=== PATIENT | male | born 1930 | race Caucasian/White ===

== ENCOUNTER 2016-05-29 14:38 | Inpatient (IN) ==
[2016-05-29] MEDS ORDERED: 0.9 % Sodium Chloride 1,000 ML IVC ONE (15:35)
--- NOTE | 2016-05-29 15:42 | Emergency Department Note ---
START Narrative - START START: I examined this patient and my medical decision-making was reviewed with the NURSE SCHOOL/PA/Advanced Practice Nurse/Resident Physician. I agree with the documented findings, disposition and treatment plan as described except to the extent set forth below. ED attending note: Patient seen with emergency medicine resident Dr. Argueta. Please see a copy of his note for details of the H&P, evaluation, management and disposition of this patient. We independently had [id number] contact with the patient Briefly: A 86-year-old male history of cancer under the care of oncology at the [facility] presents with generalized weakness for the past several days. No new shortness of breath fever or cough. Patient did ED workup and most likely transferred to the [facility]. Disposition pending. Patient stable.
[2016-05-29] MEDS ORDERED: Ondansetron 4 MG/2 ML VIAL IVP ONE (16:23)
--- NOTE | 2016-05-29 16:56 | Emergency Department Note ---
Disposition Clinical Impression: Weakness generalized, Dehydration, FTT (failure to thrive) in adult Disposition: Admitted As Inpatient Condition: Fair Time of Disposition: 17:37 Weakness HPI - General Chief complaint: ED Weakness Stated complaint: general weakness Source: EMS Limitations: no limitations Nursing Notes Reviewed: Yes Vital Signs Reviewed: Yes - History of Present Illness HPI Narrative: Patient is an 86-year-old male brought to [facility] ED with a chief complaint of generalized weakness, decreased appetite over the last 2 days with concern for dehydration, difficulty with constipation as well as difficulty with urination. Denies any nausea, vomiting, fever or chills. Past medical history significant for myelofibrosis and which she is seen at [facility]. He missed his appointment today where he normally receives blood transfusion and injection Aranest. Patient has also been complaining of recent anal spasms over the last week. Family would like him to get worked up here and then likely transferred to [facility]. Pt Subjective Complaint: generalized weakness/fatigue Onset (ago): week(s) Duration: gradually worsening Pain Severity: moderate Pain Scale: 6 Improves with: none Worsens with: none Associated symptoms: Reports: loss of appetite. Denies: chest pain, confusion, fever/chills - Related Data Home Medications Medication Instructions Recorded Confirmed Lidocaine [Lidocaine] 1 each TD DAILY 05/29/16 05/29/16 Meclizine [Antivert] 12.5 mg PO TID PRN 05/29/16 05/29/16 Tramadol HCl [Tramadol HCl] 50 - 100 mg PO Q4H PRN 05/29/16 05/29/16 Allergies Allergy/AdvReac Type Severity Reaction Status Date / Time shellfish derived AdvReac Hallucinati Verified 05/29/16 14:46 ng All systems ED: reviewed and negative except as stated. Past Medical History - Past Medical History Attestation: Yes The following information was validated with the patient. Source: patient Medical history: Reports: other Psychiatric history: Reports: no psych history - Social History Smoking Status: Unknown if ever smoked Smokeless Tobacco Status: No Alcohol use: Reports: none Drug use: Reports: none Physical Exam - General Limitations: no limitations General appearance: alert, in no apparent distress, cachectic - Head Head exam: atraumatic, normocephalic, normal inspection - Eye Eye exam: Present: normal appearance, PERRL, EOMI - ENT ENT exam: normal exam, normal oropharynx, mucous membranes moist - Neck Neck exam: Present: normal inspection, full ROM, trachea midline - Chest Chest inspection: Present: normal inspection, symmetric chest wall rise - Respiratory Respiratory exam: Present: normal lung sounds bilaterally - Cardiovascular Cardiovascular exam: Present: regular rate, normal rhythm, normal heart sounds - Abdominal Exam Abdominal exam: Present: soft, Non-Tender. Absent: tenderness, distention, guarding, rebound, rigidity - Extremities Exam Extremities exam: Present: normal inspection, full ROM. Absent: tenderness, pedal edema - Back Exam Back exam: Present: normal inspection, full ROM. Absent: tenderness - Neurological Exam Neurological exam: Present: alert, oriented X3 - Psychiatric Psychiatric exam: Present: normal affect, normal mood - Skin Skin exam: Present: warm, dry, intact, normal color Course Course Narrative: Patient seen and examined. Generalized weakness, no intake for the last 2 days. Lab work, chest x-ray ordered. - Reevaluation(s) Reevaluation #1: Lab work appears consistent with where he has been chronically. I spoke with his manager mobility Dr. Damon up at [facility] who states she does not feel patient needs transferred at this time. They would not do anything differently for him. She recommends IV fluids for his dehydration and likely transfer of care over to hospice. She states she has been gently suggesting this to the family and they have been open to this transition. He is currently DNR [facility]. I spoke with the family about this plan and they are in agreement. Patient has been admitted to [facility] Time: 17:37 Vital Signs Temperature 97.4 F L 05/29/16 14:41 Pulse Rate 89 05/29/16 14:41 Respiratory Rate 16 05/29/16 14:41 Blood Pressure 179/84 05/29/16 14:41 O2 Sat by Pulse Oximetry 99 05/29/16 14:41 Temperature 97.4 F L 05/29/16 14:41 Pulse Rate 89 05/29/16 17:37 Respiratory Rate 16 05/29/16 17:37 Blood Pressure 148/76 05/29/16 17:37 O2 Sat by Pulse Oximetry 94 L 05/29/16 17:37 Oxygen Delivery Oxygen Delivery Room Air Weakness - Medical Records Medical records reviewed: Yes I reviewed the patient's medical records. - Lab Data Lab results reviewed: Yes I reviewed the patient's lab results. Result diagrams: 05/29/16 17:02 05/29/16 17:02 Lab Results 05/29/16 05/29/16 05/29/16 Range/Units 16:43 17:02 17:02 WBC 15.7 H (4.3-11.1) K/mcL RBC 3.19 L (4.19-5.50) M/mcL Hgb 9.4 L (12.9-16.9) g/dL Hct 27.8 L (37.5-50.1) % MCV 87.1 (83.0-100.0) fL MCH 29.5 (28.0-33.3) pg MCHC 33.8 (31.6-35.5) g/dL RDW 16.0 H (11.5-14.5) % Plt Count 33 L (140-400) K/mcL MPV 9.5 (9.4-12.4) fL Seg Neutrophils % 20.0 % Band Neutrophils % 26.0 H (0-4) % Lymphocytes % 24.0 % Monocytes % 18.0 % Metamyelocytes % 10.0 H (0) % Myelocytes % 2.0 H (0) % Neutrophils # 7.2 (1.6-8.9) K/mcL Lymphocytes # 3.8 (0.6-4.6) K/mcL Monocytes # 2.8 H (0.0-1.3) K/mcL Nucleated RBCs/100 WBC 17.1 H (0) /100 WBC Platelet Estimate Marked Decrease L (Normal) Poikilocytosis 1+ A (Not Present) Anisocytosis 1+ A (Not Present) Microcytosis Present A (Not Present) Sodium 136 (136-145) mEq/L Potassium 5.0 H (3.5-4.5) mEq/L Chloride 104 (98-109) mEq/L Carbon Dioxide 22 (19-29) mEq/L BUN 20 (8-26) mg/dL Creatinine 0.85 (0.72-1.25) mg/dL Est GFR ( Amer) > 60 (> 60) Est GFR (Non-Af Amer) > 60 (> 60) BUN/Creatinine Ratio 24 (6-26) Glucose 140 H (70-99) mg/dL Calculated Osmolality 287 (280-300) Lactic Acid 1.1 (0.5-2.2) mmol/L Calcium 8.7 (8.6-10.8) mg/dL Magnesium 2.2 (1.6-2.6) mg/dL Total Bilirubin 1.6 H (0.2-1.2) mg/dL AST 17 (5-34) Units/L ALT 8 (0-55) Units/L Alkaline Phosphatase 104 (38-126) Units/L Troponin I (0-0.03) ng/mL Serum Total Protein 7.8 (6.0-8.3) g/dL Albumin 3.0 L (3.5-5.0) g/dL Globulin 4.8 H (2.4-3.5) g/dL Albumin/Globulin Ratio 0.6 L (1.1-2.2) 05/29/16 Range/Units 17:48 WBC (4.3-11.1) K/mcL RBC (4.19-5.50) M/mcL Hgb (12.9-16.9) g/dL Hct (37.5-50.1) % MCV (83.0-100.0) fL MCH (28.0-33.3) pg MCHC (31.6-35.5) g/dL RDW (11.5-14.5) % Plt Count (140-400) K/mcL MPV (9.4-12.4) fL Seg Neutrophils % % Band Neutrophils % (0-4) % Lymphocytes % % Monocytes % % Metamyelocytes % (0) % Myelocytes % (0) % Neutrophils # (1.6-8.9) K/mcL Lymphocytes # (0.6-4.6) K/mcL Monocytes # (0.0-1.3) K/mcL Nucleated RBCs/100 WBC (0) /100 WBC Platelet Estimate (Normal) Poikilocytosis (Not Present) Anisocytosis (Not Present) Microcytosis (Not Present) Sodium (136-145) mEq/L Potassium (3.5-4.5) mEq/L Chloride (98-109) mEq/L Carbon Dioxide (19-29) mEq/L BUN (8-26) mg/dL Creatinine (0.72-1.25) mg/dL Est GFR ( Amer) (> 60) Est GFR (Non-Af Amer) (> 60) BUN/Creatinine Ratio (6-26) Glucose (70-99) mg/dL Calculated Osmolality (280-300) Lactic Acid (0.5-2.2) mmol/L Calcium (8.6-10.8) mg/dL Magnesium (1.6-2.6) mg/dL Total Bilirubin (0.2-1.2) mg/dL AST (5-34) Units/L ALT (0-55) Units/L Alkaline Phosphatase (38-126) Units/L Troponin I 0.00 (0-0.03) ng/mL Serum Total Protein (6.0-8.3) g/dL Albumin (3.5-5.0) g/dL Globulin (2.4-3.5) g/dL Albumin/Globulin Ratio (1.1-2.2) - Radiology Data Radiology results reviewed: Yes I reviewed the patient's radiology results. - EKG Data EKG attestation: Yes I reviewed and interpreted this EKG. EKG results narrative: EKG done at 1457 shows normal sinus rhythm with a rate of 87 beats per minute. No acute ST elevation or depression. Normal axis.
[2016-05-29 17:10] LABS: Hematocrit 27.8 % (37.5-50.1); Hemoglobin 9.4 g/dL (12.9-16.9); Mean Corpuscular HGB Conc 33.8 g/dL (31.6-35.5); Mean Corpuscular Hemoglobin 29.5 pg (28.0-33.3); Mean Corpuscular Volume 87.1 fL (83.0-100.0); Mean Platelet Volume 9.5 fL (9.4-12.4); Nucleated Red Blood Cells 17.1 /100 WBC (0); Red Blood Count 3.19 M/mcL (4.19-5.50)
[2016-05-29 17:12] LABS: Platelet Count 33 K/mcL (140-400)
[2016-05-29 17:25] LABS: Alanine Aminotransferase 8 Units/L (0-55); Albumin/Globulin Ratio 0.6 (1.1-2.2); Alkaline Phosphatase 104 Units/L (38-126); Aspartate Amino Transferase 17 Units/L (5-34); BUN/Creatinine Ratio 24 (6-26); Bilirubin,Total 1.6 mg/dL (0.2-1.2); Blood Urea Nitrogen 20 mg/dL (8-26); Calcium 8.7 mg/dL (8.6-10.8); Carbon Dioxide 22 mEq/L (19-29); Chloride 104 mEq/L (98-109); Globulin 4.8 g/dL (2.4-3.5); Glucose 140 mg/dL (70-99); Magnesium 2.2 mg/dL (1.6-2.6); Osmolality,Calculated 287 (280-300); Sodium 136 mEq/L (136-145); Total Protein 7.8 g/dL (6.0-8.3); eGFR For African Americans > 60 (> 60); eGFR For Non-African Americans > 60 (> 60)
[2016-05-29 17:26] LABS: Lymphocytes # 3.8 K/mcL (0.6-4.6); Monocytes # 2.8 K/mcL (0.0-1.3); Neutrophils # 7.2 K/mcL (1.6-8.9)
[2016-05-29 17:27] LABS: Anisocytosis 1+ (Not Present); Microcytosis Present (Not Present); Platelet Estimate Marked Decrease (Normal); Poikilocytosis 1+ (Not Present)
[2016-05-29] MEDS ORDERED: *HR* HYDROcodone/Acet 5/325 mg TABLET PO PRN (21:21)
[2016-05-29] MEDS ORDERED: Naloxone 0.4 MG/ML INJ IVP PRN (21:21)
[2016-05-29] MEDS ORDERED: *HR* Morphine 2 MG/ML SYRINGE IVP PRN (21:21)
[2016-05-29] MEDS ORDERED: 0.9 % Sodium Chloride 1,000 ML IVC SCH (21:30)
--- NOTE | 2016-05-29 21:32 | Internal Med History&Physical ---
<Rufino Alba - Last Filed: 05/30/16 03:45> Date of Encounter: 05/30/16 Time of Encounter: 21:30 Assessment and Plan (1) Weakness generalized Current visit: Yes Status: Chronic Likely multifactorial, but patient has myelofibrosis and undergoing therapy and has poor appetite Will workup for any metabolic derangements and support with fluids at this time He desires hospice and would like comfort care only Consult palliative to assist in transition to hospice Continue with supportive measures with fluids, analgesia, and anti-emetics (2) FTT (failure to thrive) in adult Current visit: Yes Status: Acute Will consult palliative as above for hospice management Once speech therapy performs formal swallow evaluation, consider nutrition consult for management dietary supplements Caregiver states that he has tried Marinol in the past which has helped both his appetite and pain (3) Dehydration Current visit: Yes Status: Acute He clinically appears dehydrated but there has been no damage to his kidneys Will start gentle hydration with 60 ml/hr (4) DVT prophylaxis Current visit: Yes Status: Acute SCDs Internal Medicine - H&P: HPI Chief complaint: weakness Admitted From: Home Plans for Post Hospital Care: Hospice - Home History of present illness: Mr. Garsia is a 86 year old male who presents to the emergency department with 2 day history of weakness and decreased appetite. He has a history of myelofibrosis and sees oncology at the [facility] at [facility]. He had been receiving biweekly Aranest injections and infusions, however he missed today's appointment due to profound weakness. Upon arrival at the ED here at [place], patient's family wanted to transfer him up to the [facility] to receive more care. However the teller at [facility], Dr. Damon, was contacted and stated that transfer was unnecessary as no further care was needed at the [facility] They also spoke to him about transitioning him to hospice in the past, and agreed that now would be an appropriate time. Patient has been having decreased appetite over past several days but denies any nausea, vomiting, diarrhea, constipation, or blood in stool. Past Med Surg Social Fam HX - Past Medical History Medical history: other Psychiatric history: no psych history - Social History Smoking Status: Unknown if ever smoked Smokeless Tobacco Status: No Alcohol use: none Drug use: none - Family History Son Name: Rufino Garsia Age: 60 Family Member Ethnicity: Non- Living Status: Still Living Hx Family Cardiac Disorders: No Hx Family Respiratory Disorders: No Hx Family Cancer: No Hx Family GI Disorders: No Hx Family Genitourinary Disorders: No Hx Family Endocrine Disorder: Yes Hx Family Musculoskeletal Disorders: No Hx Family Neuromuscular Disorders: No Hx Family Neurologic Disorders: No Hx Family HEENT Disorders: No Hx Family Autoimmune Disorders: No Hx Family Reproductive Disorders: No Hx Family Psychosocial Disorders: No Hx Family Medical Disorders: No Internal Medicine - H&P: Meds Lidocaine [Lidocaine] 1 each TD DAILY 05/29/16 [History] Meclizine [Antivert] 12.5 mg PO TID PRN 05/29/16 [History] Tramadol HCl [Tramadol HCl] 50 - 100 mg PO Q4H PRN 05/29/16 [History] Allergies shellfish derived Adverse Reaction (Verified 05/29/16 14:46) Hallucinating All Systems PM: A 10-system review of systems was performed and is negative for pertinent findings except as documented above in the HPI. - Constitutional Constitutional: anorexia, weakness, no chills, no fever(s), no night sweats - EENT Eyes: no change in vision, no discharge, no pain, no photophobia Ears: no ear discharge, no ear pain, no tinnitus Nose, mouth and throat: no dysphagia, no nasal discharge, no neck pain, no sore throat - Cardiovascular Cardiovascular ROS IM: no chest pain, no diaphoresis, no dyspnea, no lightheadedness, no palpitations, no syncope - Respiratory Respiratory: no cough, no dyspnea, no wheezing, no excessive phlegm production - Gastrointestinal Gastrointestinal: no abdominal pain, no diarrhea, no hematemesis, no hematochezia, no melena, no nausea, no vomiting - Musculoskeletal Musculoskeletal ROS IM: no numbness, no tingling - Integumentary Integumentary IM: no rash, no unusual bruising - Neurological Neurological ROS: weakness, no confusion, no convulsions, no focal weakness, no numbness, no tingling, no tremor(s) - Hematologic/Lymphatic Hematologic/Lymphatic: no easy bruising - Constitutional Vitals: Temp Pulse Resp BP Pulse Ox 98.0 F 91 20 164/94 95 05/29/16 19:13 05/29/16 19:13 05/29/16 19:13 05/29/16 19:13 05/29/16 19:13 General appearance: Present: cachectic, cooperative, A&O X 2 (unaware of place) , pleasant, no acute distress, answers questions appropriately - Head Head exam: Present: atraumatic, normocephalic - Eye Eye exam: Present: PERRL, conjuntiva pink, sclera anicteric - Neck Neck exam general surgery: Present: supple, trachea midline. Absent: lymphadenopathy - Respiratory Respiratory exam: Present: CTAB. Absent: accessory muscle use, rales, rhonchi, wheezes - Cardiovascular Cardiovascular exam: Present: RRR, +S1, +S2. Absent: diastolic murmur, gallop, rubs, systolic murmur - GI/Abdominal GI/Abdominal exam: Present: normal bowel sounds, soft, no peritoneal signs. Absent: distended, tenderness - Extremities Exam Extremities exam: Present: warm, radial pulses palpable and symetrical. Absent : calf tenderness, cyanotic, pedal edema, tenderness - Neurological Exam Neurological exam: Present: alert, no focal deficits. Absent: oriented X3, facial droop, speech deficit - Skin Skin exam: Present: dry, intact Internal Med - H&P Results - Labs CBC & Chem 7: 05/29/16 17:02 05/29/16 17:02 <Gallo Hull - Last Filed: 05/30/16 05:45> Date of Encounter: 05/30/16 Internal Medicine - H&P: HPI History of present illness: Mr. Garsia is a 86 year old male All Systems PM: A 10-system review of systems was performed and is negative for pertinent findings except as documented above in the HPI. - Constitutional Vitals: Temp Pulse Resp BP Pulse Ox 97.6 F 71 18 152/65 99 05/30/16 03:52 05/30/16 03:52 05/30/16 03:52 05/30/16 03:52 05/30/16 03:52 Internal Med - H&P Results - Labs CBC & Chem 7: 05/29/16 17:02 05/29/16 17:02 - Attending Attestation I examined this patient and my medical decision-making was reviewed with the Resident Physician, Dr. Alba. I agree with the documented findings, disposition and treatment plan as described except to the extent set forth below. She presented to the hospital for generalized weakness. He is mildly confused. On exam he appears cachectic and in no acute distress heart is regular lungs are clear. Plan is to consult palliative care service and discharge home with hospice.
[2016-05-30] MEDS: Ondansetron 4 MG/2 ML VIAL IVP SCH ×6 (01:48→19:33)
[2016-05-30 06:19] LABS: Basophils # 0.1 K/mcL (0.0-0.2); Hematocrit 26.1 % (37.5-50.1); Hemoglobin 8.3 g/dL (12.9-16.9); Immature Platelets 9.7 % (1.1-6.1); Mean Corpuscular HGB Conc 31.8 g/dL (31.6-35.5); Mean Corpuscular Hemoglobin 28.3 pg (28.0-33.3); Mean Corpuscular Volume 89.1 fL (83.0-100.0); Mean Platelet Volume 11.3 fL (9.4-12.4); Nucleated Red Blood Cells 13.1 /100 WBC (0); Red Blood Count 2.93 M/mcL (4.19-5.50)
[2016-05-30 06:27] LABS: BUN/Creatinine Ratio 19 (6-26); Blood Urea Nitrogen 16 mg/dL (8-26); Calcium 8.5 mg/dL (8.6-10.8); Carbon Dioxide 28 mEq/L (19-29); Chloride 103 mEq/L (98-109); Glucose 101 mg/dL (70-99); Osmolality,Calculated 285 (280-300); Potassium 4.6 mEq/L (3.5-4.5); Sodium 137 mEq/L (136-145); eGFR For African Americans > 60 (> 60); eGFR For Non-African Americans > 60 (> 60)
[2016-05-30 06:34] LABS: Platelet Count 31 K/mcL (140-400)
[2016-05-30 07:03] LABS: Folate 12.9 ng/mL (7.0-31.4)
[2016-05-30 07:35] LABS: Thyroid Stimulating Hormone 3.319 mcIU/mL (0.350-4.840)
[2016-05-30 09:37] LABS: Eosinophils # 0.1 K/mcL (0.0-0.6); Lymphocytes # 3.6 K/mcL (0.6-4.6); Monocytes # 0.4 K/mcL (0.0-1.3); Neutrophils # 5.2 K/mcL (1.6-8.9)
[2016-05-30 09:39] LABS: Anisocytosis 1+ (Not Present); Ovalocytes 1+ (Not Present); Platelet Estimate Marked Decrease (Normal); Polychromasia 1+ (Not Present)
--- NOTE | 2016-05-30 10:02 | Discharge Summary ---
Date of Encounter: 05/30/16 Time of Encounter: 10:00 - Discharge Diagnosis (1) DVT prophylaxis Priority: Primary Status: Acute (2) Dehydration Priority: Secondary Status: Acute (3) FTT (failure to thrive) in adult Priority: Secondary Status: Acute (4) Weakness generalized Priority: Secondary Status: Chronic - Discharge Medications Prescriptions: Dronabinol [Marinol] 5 mg PO BIDLS #60 capsule Ondansetron HCl [Zofran] 4 mg PO Q8H 30 Days Home Medications: Lidocaine 1 each TD DAILY 05/29/16 [History] Meclizine [Antivert] 12.5 mg PO TID PRN 05/29/16 [History] Tramadol HCl 50 - 100 mg PO Q4H PRN 05/29/16 [History] Dronabinol [Marinol] 5 mg PO BIDLS #60 capsule 05/30/16 [Rx] Ondansetron HCl [Zofran] 4 mg PO Q8H 30 Days 05/30/16 [Rx] Allergies/Adverse Reactions: Allergies shellfish derived Adverse Reaction (Verified 05/29/16 14:46) Hallucinating Date of admission: 05/29/16 18:25 Primary care physician: Nilson Mcdonald MD Consults: 05/29/16 21:24 Consult to [employer] [CONS] Routine Reason for SW Consult: transition to hospice Consult to Speech Therapy [CONS] Routine Comment: Evaluate, develop and implement POC Reason for Consult: formal speech evaluation, has difficulty swallowing certain foods Call Completed: No 05/29/16 21:27 Consult to Palliative Care [CONS] Routine Comment: patient and family want hospice Consulting Provider: Pall[facility] [place] Discharging clinician: Barr[place] Villsaenor Anticipated date of discharge: 05/30/16 - Patient Status Condition: Fair - Discharge Instructions Follow Up With: Nilson Mcdonald MD [Primary Care Provider] - Hospital course: Mr. Garsia is a 86 year old male - Time Spent with Patient Total time spent providing and/or coordinating discharge services: Greater than 30 minutes (42 minutes) Specific discharge activities: do not lift more 10 pounds - Constitutional Vitals: Temp Pulse Resp BP Pulse Ox 97.7 F 64 17 116/58 98 05/30/16 06:46 05/30/16 06:46 05/30/16 06:46 05/30/16 06:46 02/17/17 08:40 General appearance: Present: cachectic, cooperative, A&O X 2 (unaware of place) , pleasant, no acute distress, answers questions appropriately
[2016-05-30 10:20] LABS: Bilirubin,Urine Negative (Negative); Blood,Urine Trace-intact (Negative); Clarity,Urine Slightly Cloudy (Clear); Glucose,Urine (UA) Normal (Normal); Ketones,Urine Negative (Negative); Leukocyte Esterase,Urine Negative (Negative); Nitrite,Urine Positive (Negative); Protein,Urine 30 mg/dL (Neg-Trace); Specific Gravity,Urine 1.025 (1.010-1.025); Urobilinogen,Urine Normal (Normal)
[2016-05-30 10:21] LABS: Color,Urine Dark Yellow (Yellow)
[2016-05-30 10:46] LABS: Amorphous Sediment,Urine Few (Few); Bacteria,Urine Many per hpf (None-Few); Hyaline Casts,Urine Few per lpf (None-Few); Mucus,Urine Many (Few)
--- NOTE | 2016-05-30 11:19 | Palliative - Consult Note ---
Date of Encounter: 05/30/16 Time of Encounter: 09:10 - Assessment and Plan (1) Constipation Current Visit: Yes Status: Acute Assessment and plan: Relieved status post disimpaction. The patient states he has been having multiple very small bowel movements each day feels much better after having had a large one in the emergency department. Qualifiers: Constipation type: slow transit constipation Qualified Code(s): K59.01 - Slow transit constipation (2) Goals of care, counseling/discussion Current Visit: Yes Status: Acute Assessment and plan: Patient's CODE STATUS is DNR comfort care. Per the emergency department note and the history of present illness [facility] does not feel they have anything further to offer this patient. At this time however the patient does not wish to stop trying, is to know what all of his options are and wishes to be discharged to home. He is not at all interested in hospice at this time and in my opinion that his current labs is probably not hospice eligible until after stopping all treatment at the [facility]. I believe that this will require conversation with the oncologist at the [facility]. And he does have an appointment on Thursday. The patient's CODE STATUS is established. The goals of care to continue treatment. This may or may not be futile, however I think the patient should have a discussion with his oncologist regarding this. Patient is not hospice eligible until such time as he is okay with stopping all treatments. And for that reason we will sign off on the case at this time. Please feel free to reconsult if we can help in any way. (3) Dehydration Current Visit: Yes Status: Acute Assessment and plan: Hospitalist team is hydrating with plans to discharge as soon as possible. (4) FTT (failure to thrive) in adult Current Visit: Yes Status: Acute Assessment and plan: Patient states that he is eating, family disputes this at this time. Patient will probably require multiple discussions with physicians and with family regarding this. (5) Weakness generalized Current Visit: Yes Status: Chronic Assessment and plan: Family states that he has been being getting progressively weaker patient is convinced that this is all related back to not being able to urinate and not being able to have his bowels completely evacuated. Patient does wish to continue getting treatment at the [facility] does have an appointment on Thursday. Recommended transition to hospice. The patient is not interested in that at this time. Stopping all treatment at the [facility] it would be appropriate, however he should and his son both agree that he is not ready for that just yet. Palliative-CN HPI - Data of Consult Patient: new to practice Requesting Physician: Mingo Hooper Primary Care Provider: Nilson Mcdonald MD - Consult Narrative Palliative Care/Comfort Measures: Palliative care Reason for consult: Hospice questions, goals of care History of present illness: Mr. Garsia is a 86 year old male Who has a history of myelofibrosis and is being followed by oncology at the [facility] at [facility]. Been receiving biweekly and arrest injections and infusions. He missed a dose yesterday due to the fact that he felt too weak to go. Per the family the patient has not been eating and has been getting weaker. The patient states that he is eating just fine and does not feel increased weakness. He denies any pain or trouble breathing at this time does have a number of complaints about the food that he has been getting here in the hospital. 2 days ago he did have some trouble with nausea and vomiting however this has stopped. The getting the Amaya in, and having a disimpaction patient feels much better and wishes to go home. Patient's son had been in contact with the people at the [facility] the people at the [facility] did not feel there was any need for him to be transferred up there suggested getting him hydrated here and having a hospice discussion with him. It is for these reasons that palliative care was consulted. CC: Mingo Hooper Per the chart to day history of weakness and decreased appetite. Per the patient because he was urinating and bound up (constipated) Past Med Surg Social Fam HX - Past Medical History Medical history: other Psychiatric history: no psych history - Past Surgical History Surgical History: herniorrhaphy, hip replacement - Social History Smoking Status: Unknown if ever smoked Smokeless Tobacco Status: No Alcohol use: none Drug use: none - Family History Son Name: Rufino Garsia Age: 60 Family Member Ethnicity: Non- Living Status: Still Living Hx Family Cardiac Disorders: No Hx Family Respiratory Disorders: No Hx Family Cancer: No Hx Family GI Disorders: No Hx Family Genitourinary Disorders: No Hx Family Endocrine Disorder: Yes Hx Family Musculoskeletal Disorders: No Hx Family Neuromuscular Disorders: No Hx Family Neurologic Disorders: No Hx Family HEENT Disorders: No Hx Family Autoimmune Disorders: No Hx Family Reproductive Disorders: No Hx Family Psychosocial Disorders: No Hx Family Medical Disorders: No Medications and Allergies Lidocaine 1 each TD DAILY 05/29/16 [History] Meclizine [Antivert] 12.5 mg PO TID PRN 05/29/16 [History] Tramadol HCl 50 - 100 mg PO Q4H PRN 05/29/16 [History] Dronabinol [Marinol] 5 mg PO BIDLS #60 capsule 05/30/16 [Rx] Ondansetron HCl [Zofran] 4 mg PO Q8H 30 Days 05/30/16 [Rx] Allergies shellfish derived Adverse Reaction (Verified 05/29/16 14:46) Hallucinating - Constitutional Constitutional ROS PAL: decreased appetite (By history, patient denies) - EENT Eyes: no dry eye, no pain Ears: no ear discharge, no ear pain Ears, nose, mouth, throat: no facial pain, no hoarseness, no neck mass, no neck pain - Cardiovascular Cardiovascular ROS: no chest pain, no chest pain at rest, no chest pain with activity - Respiratory Respiratory: no cough, no dyspnea, no hemoptysis - Gastrointestinal Gastrointestinal: constipation (Assessment resolved after what sounds like a disimpaction in the emergency department), nausea, vomiting (Both have resolved) , no diarrhea - Genitourinary Genitourinary ROS male: difficulty urinating, no urinary frequency, no urinary hesitancy, no urinary incontinence - Musculoskeletal Musculoskeletal ROS IM: no arthralgias, no back pain - Integumentary ROS Integumentary: no skin pain, no sores - Neurological Neurological ROS: no frequent falls, no headache(s), no radicular pain, no sensory deficit - Psychiatric Psychiatric general PM: change in appetite (Per family, patient denies), no homicidal ideation, no suicidal ideation - Endocrine Endocrine IM: other (No problems with diabetes or thyroid problems) Palliative Care-Exam - Constitutional Vitals: Temp Pulse Resp BP Pulse Ox 98.2 F 82 15 133/69 96 05/30/16 10:58 05/30/16 10:58 05/30/16 10:58 05/30/16 10:58 05/30/16 10:58 General appearance: Present: no acute distress, thin - Head Head Exam: Present: atraumatic, normal inspection, normocephalic - Eye Eye exam: Present: EOMI, normal appearance - ENT ENT exam: Present: mucous membranes moist, normal oropharynx - Neck Neck exam: Present: normal inspection - Respiratory Respiratory exam: Present: CTAB - Cardiovascular Cardiovascular exam: Present: RRR - GI/Abdominal Exam GI/Abdominal exam: Present: normal bowel sounds, soft. Absent: tenderness - Extremities Exam Extremities exam: Present: normal inspection. Absent: pedal edema, tenderness - Neurological Exam Neurological exam: Present: alert, oriented X3 - Psychiatric Psychiatric exam: Present: normal affect, normal mood. Absent: agitated, anxious, homicidal ideation, suicidal ideation - Skin Skin exam: Present: dry, warm Internal Medicine - CN: Reslt - Labs CBC & Chem 7: 05/30/16 05:42 05/30/16 05:42 Labs: Short CBC 05/30/16 Range/Units 05:42 WBC 10.0 (4.3-11.1) K/mcL Hgb 8.3 L (12.9-16.9) g/dL Hct 26.1 L (37.5-50.1) % Plt Count 31 L (140-400) K/mcL Neutrophils # 5.2 (1.6-8.9) K/mcL BMP 05/30/16 05:42 Sodium 137 Potassium 4.6 H Chloride 103 Carbon Dioxide 28 BUN 16 Creatinine 0.83 Glucose 101 H Calcium 8.5 L Urine 05/30/16 Range/Units 10:00 Urine Color Dark Yellow (Yellow) Urine Clarity Slightly Cloudy A (Clear) Urine pH 6.0 (5.0-8.0) pH Units Ur Specific [place] 1.025 (1.010-1.025) Urine Protein 30 H (Neg-Trace) mg/dL Urine Glucose (UA) Normal (Normal) mg/dL Consult Discharge Plan - Plan Referrals: Nilson Mcdonald MD [Primary Care Provider] - Prescriptions: Dronabinol [Marinol] 5 mg PO BIDLS #60 capsule Ondansetron HCl [Zofran] 4 mg PO Q8H 30 Days Palliative Quality Palliative Quality: Screen for Code Status: Yes, Screen for Goals of Care: Yes, Screen for Pain: Yes, If Pain Regimen Started, Initiate Bowel Regimen: NA ( Patient had bowel movement yesterday), Screen for Nausea/Vomitting: Yes Code Status: 05/29/16 21:21 Resuscitation Status: Active [RES] Routine Comment: Resuscitation Status: DNR-Comfort Care
--- NOTE | 2016-05-30 11:52 | Internal Med Progress Note ---
<Barrington Villasenor - Last Filed: 05/30/16 11:45> Date of Encounter: 05/30/16 Time of Encounter: 11:45 - Assessment and plan (1) Urinary (tract) obstruction Current Visit: Yes Status: Acute Assessment and plan: Likely from BPH. Patient reports long history of difficulty initiating a stream and intermittant stopping. I discussed with Urology Dr. Brady. We will keep the bruce in and discharge him to follow up in a week for a voiding trial. We will also start him on Flomax. I did discuss the potential for orthostatic hypotension with the patient and family. (2) Dehydration Current Visit: Yes Status: Acute Assessment and plan: continue IVF (3) FTT (failure to thrive) in adult Current Visit: Yes Status: Acute (4) Weakness generalized Current Visit: Yes Status: Chronic (5) Myelofibrosis Current Visit: Yes Status: Acute Assessment and plan: Per reports there may not be any more options for treatment. He will follow up with his oncologist on Thursday. (6) DVT prophylaxis Current Visit: Yes Status: Acute - Subjective Interval history: Today the patient states that he is feeling better. He states that his Nausea has improved. He states that he could not urinate yesterday. He denies fever chills, dysuria or hematuria. He has been eating and drinking very well. He also had some constipation but this fajardo resolved. He has no further commplaints or concerns at this time. - Constitutional Vitals: Temp Pulse Resp BP Pulse Ox 98.2 F 82 15 133/69 96 05/30/16 10:58 05/30/16 10:58 05/30/16 10:58 05/30/16 10:58 05/30/16 10:58 General appearance: Present: cachectic, cooperative, A&O X 2 (unaware of place) , pleasant, no acute distress, answers questions appropriately - Head Head exam: Present: atraumatic, normocephalic - Eye Eye exam: Present: PERRL, conjuntiva pink, sclera anicteric Pupils: Present: PERRL - Neck Neck exam general surgery: Present: supple, trachea midline. Absent: lymphadenopathy - Respiratory Respiratory exam: Present: CTAB. Absent: accessory muscle use, rales, rhonchi, wheezes - Cardiovascular Cardiovascular exam: Present: RRR, +S1, +S2. Absent: diastolic murmur, gallop, rubs, systolic murmur - Extremities Exam Extremities exam: Present: warm, radial pulses palpable and symetrical. Absent : calf tenderness, cyanotic, pedal edema - Skin Skin exam: Present: dry, intact Internal Medicine: Result - Labs CBC & Chem 7: 05/30/16 05:42 05/30/16 05:42 Labs: Short CBC 05/30/16 Range/Units 05:42 WBC 10.0 (4.3-11.1) K/mcL Hgb 8.3 L (12.9-16.9) g/dL Hct 26.1 L (37.5-50.1) % Plt Count 31 L (140-400) K/mcL Neutrophils # 5.2 (1.6-8.9) K/mcL BMP 05/30/16 05:42 Sodium 137 Potassium 4.6 H Chloride 103 Carbon Dioxide 28 BUN 16 Creatinine 0.83 Glucose 101 H Calcium 8.5 L Urine 05/30/16 Range/Units 10:00 Urine Color Dark Yellow (Yellow) Urine Clarity Slightly Cloudy A (Clear) Urine pH 6.0 (5.0-8.0) pH Units Ur Specific [place] 1.025 (1.010-1.025) Urine Protein 30 H (Neg-Trace) mg/dL Urine Glucose (UA) Normal (Normal) mg/dL Consult Discharge Plan - Plan Referrals: Nilson Mcdonald MD [Primary Care Provider] - Prescriptions: Dronabinol [Marinol] 5 mg PO BIDLS #60 capsule Ondansetron HCl [Zofran] 4 mg PO Q8H 30 Days <Mingo Hooper H - Last Filed: 05/30/16 13:02> Date of Encounter: 05/30/16 - Constitutional Vitals: Temp Pulse Resp BP Pulse Ox 98.2 F 82 15 133/69 96 05/30/16 10:58 05/30/16 10:58 05/30/16 10:58 05/30/16 10:58 05/30/16 10:58 Internal Medicine: Result - Labs CBC & Chem 7: 05/30/16 05:42 05/30/16 05:42 Labs: Short CBC 05/30/16 Range/Units 05:42 WBC 10.0 (4.3-11.1) K/mcL Hgb 8.3 L (12.9-16.9) g/dL Hct 26.1 L (37.5-50.1) % Plt Count 31 L (140-400) K/mcL Neutrophils # 5.2 (1.6-8.9) K/mcL BMP 05/30/16 05:42 Sodium 137 Potassium 4.6 H Chloride 103 Carbon Dioxide 28 BUN 16 Creatinine 0.83 Glucose 101 H Calcium 8.5 L Urine 05/30/16 Range/Units 10:00 Urine Color Dark Yellow (Yellow) Urine Clarity Slightly Cloudy A (Clear) Urine pH 6.0 (5.0-8.0) pH Units Ur Specific [place] 1.025 (1.010-1.025) Urine Protein 30 H (Neg-Trace) mg/dL Urine Glucose (UA) Normal (Normal) mg/dL - Attending Attestation keep bruce in for urinary retention likely BPH. Follow up with urology myelofibrosis, follow with Oncology at the [facility] I examined this patient and my medical decision-making was reviewed with the JOINT TERMINAL ATTACK CONTROLLER/PA/Advanced Practice Nurse/Resident Physician. I agree with the documented findings, disposition and treatment plan as described except to the extent set forth below.
--- NOTE | 2016-05-30 17:19 | Electrocardiograph Report ---
[place] [id number] Test Date: 2016-05-29 Pat Name: Hamilton Garsia Department: 105 Room: 2A44 Gender: M Recruiting Assistant: : 1930 Requested By: Louisa Argueta Order Number: [id number] Reading MD: Renetta Valladares Measurements Intervals [place] Rate: 87 P: 70 SC: 161 QRS: 37 QRSD: 80 T: 55 QT: 360 QTc: 404 Interpretive Statements SINUS RHYTHM MINIMAL VOLTAGE CRITERIA FOR LVH NONSPECIFIC ST \T\ T-WAVE ABNORMALITY Electronically Signed On 05-30-2016 17:17:59 EST by Renetta Valladares
[2016-05-31] MEDS: Ondansetron 4 MG/2 ML VIAL IVP SCH ×7 (00:12→23:34)
[2016-05-31] MEDS ORDERED: Haloperidol Lactate 5 MG/ML VIAL IVP ONE (03:57)
[2016-05-31] MEDS ORDERED: *HR* LORazepam 2 MG/ML VIAL IVP ONE (03:57)
[2016-05-31 08:32] LABS: Hematocrit 23.6 % (37.5-50.1); Hemoglobin 7.9 g/dL (12.9-16.9); Immature Platelets 9.8 % (1.1-6.1); Mean Corpuscular HGB Conc 33.5 g/dL (31.6-35.5); Mean Corpuscular Hemoglobin 29.2 pg (28.0-33.3); Mean Corpuscular Volume 87.1 fL (83.0-100.0); Mean Platelet Volume 10.7 fL (9.4-12.4); Nucleated Red Blood Cells 5.2 /100 WBC (0); Red Blood Count 2.71 M/mcL (4.19-5.50); Red Cell Distribution Width 15.9 % (11.5-14.5)
[2016-05-31 08:39] LABS: BUN/Creatinine Ratio 16 (6-26); Blood Urea Nitrogen 14 mg/dL (8-26); Calcium 8.5 mg/dL (8.6-10.8); Carbon Dioxide 27 mEq/L (19-29); Chloride 101 mEq/L (98-109); Glucose 98 mg/dL (70-99); Osmolality,Calculated 278 (280-300); Potassium 4.3 mEq/L (3.5-4.5); Sodium 134 mEq/L (136-145); eGFR For African Americans > 60 (> 60); eGFR For Non-African Americans > 60 (> 60)
[2016-05-31 08:48] LABS: Platelet Count 23 K/mcL (140-400)
[2016-05-31 08:51] LABS: Lymphocytes # 2.7 K/mcL (0.6-4.6); Monocytes # 0.6 K/mcL (0.0-1.3); Neutrophils # 2.3 K/mcL (1.6-8.9)
[2016-05-31 08:52] LABS: Anisocytosis 1+ (Not Present); Platelet Estimate Marked Decrease (Normal); Poikilocytosis 1+ (Not Present); Polychromasia 1+ (Not Present)
--- NOTE | 2016-05-31 11:28 | Internal Med Progress Note ---
<Barrington Villasenor - Last Filed: 05/31/16 11:26> Date of Encounter: 05/31/16 Time of Encounter: 08:10 - Assessment and plan (1) Urinary (tract) obstruction Current Visit: Yes Status: Acute Assessment and plan: Likely from BPH. Patient reports long history of difficulty initiating a stream and intermittant stopping. I discussed with Urology Dr. Brady. We will keep the bruce in at discharge and have him to follow up in a week for a voiding trial. Wehave started him on Flomax. I did discuss the potential for orthostatic hypotension with the patient and family. (2) Altered mental status, unspecified Current Visit: Yes Status: Acute Assessment and plan: Likely from UTI Will start him on rocephin. will also obtain CT of the head to r/o bleeding given his thrombocytopenia. will check a BMP. and calcium. (3) UTI (urinary tract infection) Current Visit: Yes Status: Acute Assessment and plan: as stated above (4) Dehydration Current Visit: Yes Status: Acute Assessment and plan: continue IVF (5) FTT (failure to thrive) in adult Current Visit: Yes Status: Acute (6) Weakness generalized Current Visit: Yes Status: Chronic (7) Myelofibrosis Current Visit: Yes Status: Acute Assessment and plan: Per reports there may not be any more options for treatment. He will follow up with his oncologist on Thursday. (8) DVT prophylaxis Current Visit: Yes Status: Acute Assessment and plan: EPCDS - Subjective Interval history: patient had some confusion overnight. Reprotedly he was hallucinating and seeing jaguars in his room overnight. Additionally he attempted to remove his catheter. He was given Ativan and Haldol at approximately 4am. Currently he is quite somnolent and difficult to interview. I am able to wake him with voice but hhe quickly falls back to sleep. He denies any pain or discomfort at this time. - Constitutional Vitals: Temp Pulse Resp BP Pulse Ox 97.8 F 80 16 117/61 98 05/31/16 10:37 05/31/16 10:37 05/31/16 10:37 05/31/16 10:37 05/31/16 10:37 General appearance: Present: cachectic, cooperative, pleasant, no acute distress , answers questions appropriately Exam: somnolent but wakes with voice. - Head Head exam: Present: atraumatic, normocephalic - Eye Eye exam: Present: PERRL, conjuntiva pink, sclera anicteric Pupils: Present: PERRL - Neck Neck exam general surgery: Present: supple, trachea midline. Absent: lymphadenopathy - Respiratory Respiratory exam: Present: CTAB. Absent: accessory muscle use, rales, rhonchi, wheezes - Cardiovascular Cardiovascular exam: Present: RRR, +S1, +S2. Absent: diastolic murmur, gallop, rubs, systolic murmur - GI/Abdominal GI/Abdominal exam: Present: normal bowel sounds, soft, no peritoneal signs. Absent: distended, tenderness - Extremities Exam Extremities exam: Present: warm, radial pulses palpable and symetrical. Absent : calf tenderness, cyanotic, pedal edema Internal Medicine: Result - Labs CBC & Chem 7: 05/31/16 08:15 05/31/16 08:15 Labs: Short CBC 05/31/16 Range/Units 08:15 WBC 7.8 (4.3-11.1) K/mcL Hgb 7.9 L (12.9-16.9) g/dL Hct 23.6 L (37.5-50.1) % Plt Count 23 L* (140-400) K/mcL Neutrophils # 2.3 (1.6-8.9) K/mcL BMP 05/31/16 08:15 Sodium 134 L Potassium 4.3 Chloride 101 Carbon Dioxide 27 BUN 14 Creatinine 0.88 Glucose 98 Calcium 8.5 L - Impressions Impressions Head CT 05/31/16 09:06 IMPRESSION: 1. Motion degraded examination. 2. No acute intracranial abnormality. 3. 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 4. 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 D/ / 05/31/2016 09:53:29 Noel Mckee MD / stuart Interpreting Provider: Noel Mckee MD Consult Discharge Plan - Plan Referrals: Nilson Mcdonald MD [Primary Care Provider] - Prescriptions: Dronabinol [Marinol] 5 mg PO BIDLS #60 capsule Ondansetron HCl [Zofran] 4 mg PO Q8H 30 Days <Mingo Hooper H - Last Filed: 05/31/16 12:52> Date of Encounter: 05/31/16 - Constitutional Vitals: Temp Pulse Resp BP Pulse Ox 97.8 F 80 16 117/61 98 05/31/16 10:37 05/31/16 10:37 05/31/16 10:37 05/31/16 10:37 05/31/16 11:15 Internal Medicine: Result - Labs CBC & Chem 7: 05/31/16 08:15 05/31/16 08:15 Labs: Short CBC 05/31/16 Range/Units 08:15 WBC 7.8 (4.3-11.1) K/mcL Hgb 7.9 L (12.9-16.9) g/dL Hct 23.6 L (37.5-50.1) % Plt Count 23 L* (140-400) K/mcL Neutrophils # 2.3 (1.6-8.9) K/mcL BMP 05/31/16 08:15 Sodium 134 L Potassium 4.3 Chloride 101 Carbon Dioxide 27 BUN 14 Creatinine 0.88 Glucose 98 Calcium 8.5 L - Impressions Impressions Head CT 05/31/16 09:06 IMPRESSION: 1. Motion degraded examination. 2. No acute intracranial abnormality. 3. 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 4. 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 D/ / 05/31/2016 09:53:29 Noel Mckee MD / stuart Interpreting Provider: Noel Mckee MD - Attending Attestation Acute metabolic encephalopathy likely secondary to urinary tract infection Culture growing gram-positive cocci Discontinue Rocephin and start Unasyn with gentamicin IV CT scan of the head was negative High risk of falling I examined this patient and my medical decision-making was reviewed with the ASSISTANT FAMILY TEACHER/PA/Advanced Practice Nurse/Resident Physician. I agree with the documented findings, disposition and treatment plan as described except to the extent set forth below.
[2016-05-31] MEDS ORDERED: Gentamicin 40 MG in 0.9 % Sodium Chloride 100 ML IVPB SCH (13:00)
[2016-05-31] MEDS ORDERED: Gentamicin 40 MG in 0.9 % Sodium Chloride 100 ML IVPB ONE (14:00)
[2016-05-31] MEDS: *HR* LORazepam 2 MG/ML VIAL IVP PRN ×2 (14:17→17:51)
[2016-05-31] MEDS: Ampicillin/Sulbactam 1,500 MG in 0.9 % Sodium Chloride Mini Bag 100 ML IVPB SCH ×2 (17:52→23:34)
[2016-05-31] MEDS ORDERED: *HR* LORazepam 2 MG/ML VIAL IVP PRN (18:58)
[2016-06-01] MEDS: SODIUM CHLORIDE 0.9% IVPB SCH ×2 (02:08→14:22)
[2016-06-01] MEDS: GENTAMICIN IVPB SCH ×2 (02:08→14:22)
[2016-06-01] MEDS: Ondansetron 4 MG/2 ML VIAL IVP SCH ×5 (03:10→21:27)
[2016-06-01] MEDS: Ampicillin/Sulbactam 1,500 MG in 0.9 % Sodium Chloride Mini Bag 100 ML IVPB SCH ×3 (05:33→21:25)
[2016-06-01 06:11] LABS: Hematocrit 24.4 % (37.5-50.1); Hemoglobin 7.8 g/dL (12.9-16.9); Immature Platelets 11.3 % (1.1-6.1); Mean Corpuscular Hemoglobin 28.2 pg (28.0-33.3); Mean Corpuscular Volume 88.1 fL (83.0-100.0); Nucleated Red Blood Cells 2.9 /100 WBC (0); Red Blood Count 2.77 M/mcL (4.19-5.50); Red Cell Distribution Width 15.4 % (11.5-14.5)
[2016-06-01 06:25] LABS: BUN/Creatinine Ratio 17 (6-26); Blood Urea Nitrogen 14 mg/dL (8-26); Calcium 8.3 mg/dL (8.6-10.8); Carbon Dioxide 26 mEq/L (19-29); Chloride 101 mEq/L (98-109); Glucose 95 mg/dL (70-99); Osmolality,Calculated 280 (280-300); Potassium 4.2 mEq/L (3.5-4.5); Sodium 135 mEq/L (136-145); eGFR For African Americans > 60 (> 60); eGFR For Non-African Americans > 60 (> 60)
[2016-06-01 07:54] LABS: Platelet Count 19 K/mcL (140-400)
[2016-06-01 08:08] LABS: Lymphocytes # 4.1 K/mcL (0.6-4.6); Monocytes # 0.5 K/mcL (0.0-1.3)
[2016-06-01 08:09] LABS: Platelet Estimate Marked Decrease (Normal)
--- NOTE | 2016-06-01 12:22 | Internal Med Progress Note ---
Date of Encounter: 06/01/16 Time of Encounter: 12:21 - Assessment and plan (1) Altered mental status, unspecified Current Visit: Yes Status: Acute Assessment and plan: Acute metabolic encephalopathy Likely from UTI rocephin was discontinued on May 31 as his culture is growing gram- positive cocci. CT of the head did not show any hemorrhage Continue Unasyn and gentamicin day 2 Await final report of sensitivity for discharge planning Qualifiers: Altered mental status type: unspecified Qualified Code(s): R41.82 - Altered mental status, unspecified (2) Pancytopenia Current Visit: Yes Status: Acute Assessment and plan: Secondary to myelofibrosis (3) Dehydration Current Visit: Yes Status: Acute Assessment and plan: continue IVF (4) Myelofibrosis Current Visit: Yes Status: Acute Assessment and plan: Per reports there may not be any more options for treatment. He will follow up with his oncologist Transfuse 1 unit of red blood cells today as his hemoglobin is 7.8. Platelets are 19,000, consider transfusing platelets if platelets go below 10,000 (5) UTI (urinary tract infection) Current Visit: Yes Status: Acute Assessment and plan: as stated above Qualifiers: Urinary tract infection type: acute cystitis Hematuria presence: without hematuria Qualified Code(s): N30.00 - Acute cystitis without hematuria (6) Weakness generalized Current Visit: Yes Status: Chronic Assessment and plan: Severe weakness due to deconditioning Physical therapy evaluation High risk for falling - Time Spent With Patient Greater than 35 minutes - Subjective Interval history: The patient is more awake, gets confused at times. Denies any abdominal pain, no fevers overnight. No chest pain or shortness of breath. Mild dysuria. No diarrhea - Constitutional Vitals: Temp Pulse Resp BP Pulse Ox 98.1 F 89 14 103/59 96 06/01/16 10:31 06/01/16 10:31 06/01/16 10:31 06/01/16 10:31 06/01/16 10:31 General appearance: Present: cachectic, cooperative, pleasant, no acute distress , answers questions appropriately - Head Head exam: Present: atraumatic, normocephalic - Eye Eye exam: Present: PERRL, conjuntiva pink, sclera anicteric Pupils: Present: PERRL - Neck Neck exam general surgery: Present: supple, trachea midline. Absent: lymphadenopathy - Respiratory Respiratory exam: Present: decreased breath sounds, CTAB. Absent: accessory muscle use, rales, rhonchi, wheezes - Cardiovascular Cardiovascular exam: Present: RRR, +S1, +S2. Absent: diastolic murmur, gallop, rubs, systolic murmur - GI/Abdominal GI/Abdominal exam: Present: normal bowel sounds, soft, no peritoneal signs. Absent: distended, tenderness - Extremities Exam Extremities exam: Present: warm, radial pulses palpable and symetrical. Absent : calf tenderness, cyanotic, pedal edema - Neurological Exam Neurological exam: Present: CN II-XII intact, oriented X3, no focal deficits. Absent: pronater drift, facial droop, speech deficit - Skin Skin exam: Present: dry, intact Internal Medicine: Result - Labs CBC & Chem 7: 06/01/16 05:59 06/01/16 05:59 Labs: Short CBC 06/01/16 Range/Units 05:59 WBC 7.6 (4.3-11.1) K/mcL Hgb 7.8 L (12.9-16.9) g/dL Hct 24.4 L (37.5-50.1) % Plt Count 19 L* (140-400) K/mcL Neutrophils # 3.0 (1.6-8.9) K/mcL BMP 06/01/16 05:59 Sodium 135 L Potassium 4.2 Chloride 101 Carbon Dioxide 26 BUN 14 Creatinine 0.83 Glucose 95 Calcium 8.3 L Consult Discharge Plan - Plan Referrals: Nilson Mcdonald MD [Primary Care Provider] - Prescriptions: Dronabinol [Marinol] 5 mg PO BIDLS #60 capsule Ondansetron HCl [Zofran] 4 mg PO Q8H 30 Days
[2016-06-01] MEDS ORDERED: 0.9 % Sodium Chloride 250 ML ONE (16:48)
[2016-06-02] MEDS: Ondansetron 4 MG/2 ML VIAL IVP SCH ×4 (00:24→13:01)
[2016-06-02] MEDS: Ampicillin/Sulbactam 1,500 MG in 0.9 % Sodium Chloride Mini Bag 100 ML IVPB SCH ×2 (00:31→06:04)
[2016-06-02] MEDS: GENTAMICIN IVPB SCH (01:57)
[2016-06-02] MEDS: SODIUM CHLORIDE 0.9% IVPB SCH (01:57)
[2016-06-02 05:13] LABS: Hemoglobin 8.5 g/dL (12.9-16.9)
[2016-06-02 05:15] LABS: Basophils # 0.1 K/mcL (0.0-0.2); Basophils % 1.2 %; Eosinophils % 0.3 %; Hematocrit 26.1 % (37.5-50.1); Immature Granulocytes % 23.3 % (0-4); Immature Platelets 11.2 % (1.1-6.1); Lymphocytes # 2.4 K/mcL (0.6-4.6); Mean Corpuscular HGB Conc 32.6 g/dL (31.6-35.5); Mean Corpuscular Hemoglobin 28.9 pg (28.0-33.3); Mean Corpuscular Volume 88.8 fL (83.0-100.0); Monocytes # 0.9 K/mcL (0.0-1.3); Monocytes % 10.1 %; Neutrophils # 3.6 K/mcL (1.6-8.9); Nucleated Red Blood Cells 4.4 /100 WBC (0); Red Blood Count 2.94 M/mcL (4.19-5.50); Red Cell Distribution Width 15.3 % (11.5-14.5); Segmented Neutrophils % 39.1 %
[2016-06-02 05:20] LABS: Platelet Count 21 K/mcL (140-400)
[2016-06-02 05:30] LABS: BUN/Creatinine Ratio 17 (6-26); Blood Urea Nitrogen 15 mg/dL (8-26); Carbon Dioxide 27 mEq/L (19-29); Chloride 104 mEq/L (98-109); Glucose 85 mg/dL (70-99); Osmolality,Calculated 284 (280-300); Potassium 4.2 mEq/L (3.5-4.5); Sodium 137 mEq/L (136-145); eGFR For African Americans > 60 (> 60); eGFR For Non-African Americans > 60 (> 60)
[2016-06-02 05:53] LABS: Platelet Estimate Decreased (Normal); Polychromasia 1+ (Not Present)
[2016-06-02 05:54] LABS: Macrocytosis Present (Not Present)
--- NOTE | 2016-06-02 10:36 | Discharge Summary ---
<Barrington Villasenor - Last Filed: 06/02/16 11:09> Date of Encounter: 06/02/16 Time of Encounter: 10:35 - Discharge Diagnosis (1) Urinary (tract) obstruction Priority: Primary Status: Acute Comments: Most likely from BPH. We will discharge him with a Bruce. I discussed with Dr. Brady. He will see him in the office for a voiding trial. (2) Altered mental status, unspecified Priority: Primary Status: Acute Comments: secondary to UTI resolved Qualifiers: Altered mental status type: unspecified Qualified Code(s): R41.82 - Altered mental status, unspecified (3) UTI (urinary tract infection) Priority: Primary Status: Acute Comments: secondary to Gram positive bacteria/ CON staph. Likely his urinary tract obstruction contributed to this. we treated him initially with Unasyn and Gentamicin as cultures revealed GPC. We were conserned for VRE given his repeated health care exposure. He was treated with Gentamycin and Unasyn initially. will need follow up Renal function in 3 days. Qualifiers: Urinary tract infection type: acute cystitis Hematuria presence: without hematuria Qualified Code(s): N30.00 - Acute cystitis without hematuria (4) Dehydration Priority: Secondary Status: Acute Comments: resolved (5) FTT (failure to thrive) in adult Priority: Secondary Status: Acute Comments: secondary to age and myelofibrosis. (6) Weakness generalized Priority: Secondary Status: Chronic Comments: improving However he still has some difficulties. We will DC with home daisy, Pt/OT and a hospital bed. (7) Myelofibrosis Priority: Secondary Status: Acute Comments: he will follow up with his Oncologist. (8) DVT prophylaxis Priority: Secondary Status: Acute (9) Muscular deconditioning Priority: Secondary Status: Acute Comments: PT/OT (10) Cachexia Priority: Secondary Status: Acute (11) Underweight Priority: Secondary Status: Acute Comments: on marinol (12) Anemia Priority: Secondary Status: Acute Comments: secondary to myelofibrosis (13) Thrombocytopenia Priority: Secondary Status: Acute Comments: secondary to myelofibrosis - Discharge Medications Prescriptions: Amoxicillin [Amoxil] 500 mg PO BID #10 capsule Dronabinol [Marinol] 5 mg PO BIDLS #60 capsule Phenazopyridine [Pyridium] 100 mg PO TID PRN #30 tablet PRN Reason: bladder spasm/bruce discomfort Tamsulosin [Flomax] 0.4 mg PO DAILY #30 capsule Home Medications: Lidocaine 1 each TD DAILY 05/29/16 [History] Meclizine [Antivert] 12.5 mg PO TID PRN 05/29/16 [History] Tramadol HCl 50 - 100 mg PO Q4H PRN 05/29/16 [History] Ondansetron HCl [Zofran] 4 mg PO Q8H 30 Days 05/30/16 [Rx] Amoxicillin [Amoxil] 500 mg PO BID #10 capsule 06/02/16 [Rx] Dronabinol [Marinol] 5 mg PO BIDLS #60 capsule 06/02/16 [Rx] Lidocaine Patch [Lidoderm 5% patch] 2 each TP DAILY adh..patch 06/02/16 [Rx] Phenazopyridine [Pyridium] 100 mg PO TID PRN #30 tablet 06/02/16 [Rx] Tamsulosin [Flomax] 0.4 mg PO DAILY #30 capsule 06/02/16 [Rx] Allergies/Adverse Reactions: Allergies shellfish derived Adverse Reaction (Verified 05/29/16 14:46) Hallucinating Date of admission: 06/01/16 12:25 Primary care physician: Nilson Mcdonald MD Discharging clinician: Barrington Villasenor Anticipated date of discharge: 06/02/16 - Patient Status Disposition: Home Health Service Condition: Fair Functional capacity at discharge: independent ambulation Overall status at discharge: patient is progressing back to baseline - Ambulatory Orders Ambulatory Orders: Basic Metabolic Panel [CHEM] Time Frame: 3 Days, Location: Any lab - Discharge Instructions Instructions: Phenazopyridine (By mouth), Dronabinol (By mouth), Tamsulosin ( By mouth), Nitrofurantoin Combination (By mouth) Follow Up With: Nilson Mcdonald MD [Primary Care Provider] - 06/09/16 2:40 pm ( ) Additional Instructions: Please follow up with your PCP in 7-10 days. Keep bruce catheter in place until voiding trial with your Urologist ( Dr. brady) Please follow up with Urology within 7 days. Please take medications only as prescribed Please follow up with your Oncologist. - Diet and Activity Activity: as per physical therapy Diet: regular diet Hospital course: Mr. Garsia is a 86 year old male with myelofibrosis. Reportedly the ER spoke with his oncologist and there are not many treatment options left for him. He was admitted with dehydration, failure to thrive, urinary tract obstruction and UTI. He also had some altered mentation that resolved with treating his UTI. He has chronic anemia and thrombocytopenia. He was given one unit of PRBC during his hospitalization. He has improved and is now mentating well. Urine cultures have grown Staph epidermidis. We will discharge him with home health and PT/OT. I will also write him a script as he is quite deconditioned, underweight and cachectic. He has difficulty getting out of his bed at home per his family reports. I believe this will beneficial to him. His condition will not likely improve and per family report will be discussing hospice with his oncologist at next visit. today the patient is stable. He is eating and drinking well. His mentation has returned to his baseline. We will discharge him today to follow up with his oncologist and with Urology for a voiding trial in one week. We will continue his bruce. - Time Spent with Patient Total time spent providing and/or coordinating discharge services: Greater than 30 minutes (I spent approximately 50 miinutes discharging this patient and coordinating his care.) - Constitutional Vitals: Temp Pulse Resp BP Pulse Ox 97.6 F 68 16 136/70 97 06/02/16 07:24 06/02/16 07:24 06/02/16 07:24 06/02/16 07:24 06/02/16 07:24 General appearance: Present: cachectic, cooperative, A&O X 3, pleasant, no acute distress, answers questions appropriately - Head Head exam: Present: atraumatic, normocephalic - Eye Eye exam: Present: PERRL, conjuntiva pink, sclera anicteric Pupils: Present: PERRL - Neck Neck exam general surgery: Present: supple, trachea midline. Absent: lymphadenopathy - Respiratory Respiratory exam: Present: CTAB. Absent: accessory muscle use, rales, rhonchi, wheezes - Cardiovascular Cardiovascular exam: Present: RRR, +S1, +S2. Absent: diastolic murmur, gallop, rubs, systolic murmur - GI/Abdominal GI/Abdominal exam: Present: normal bowel sounds, soft, no peritoneal signs. Absent: distended, tenderness - Extremities Exam Extremities exam: Present: warm, radial pulses palpable and symetrical. Absent : calf tenderness, cyanotic, pedal edema Additional comments: muscular atrophy present - Skin Skin exam: Present: dry, intact <Mingo Hooper - Last Filed: 06/02/16 13:00> Date of Encounter: 06/02/16 - Discharge Diagnosis (1) Altered mental status, unspecified Status: Acute Qualifiers: Altered mental status type: unspecified Qualified Code(s): R41.82 - Altered mental status, unspecified (2) Pancytopenia Status: Acute (3) Dehydration Status: Acute (4) Myelofibrosis Status: Acute (5) UTI (urinary tract infection) Status: Acute Qualifiers: Urinary tract infection type: acute cystitis Hematuria presence: without hematuria Qualified Code(s): N30.00 - Acute cystitis without hematuria (6) Weakness generalized Status: Chronic Date of admission: 06/01/16 12:25 Primary care physician: Nilson Mcdonald MD Hospital course: Mr. Garsia is a 86 year old male - Time Spent with Patient Total time spent providing and/or coordinating discharge services: - Constitutional Vitals: Temp Pulse Resp BP Pulse Ox 98 F 78 16 113/56 98 06/02/16 11:23 06/02/16 11:23 06/02/16 11:23 06/02/16 11:23 06/02/16 11:23 - Attending Attestation acute metabolic encephalopathy secondary to UTI ( staph epidermidis) sensitive to amoxicillin Keep Bruce until Urology follow up I examined this patient and my medical decision-making was reviewed with the DIMPLING MACHINE OPERATOR/PA/Advanced Practice Nurse/Resident Physician. I agree with the documented findings, disposition and treatment plan as described except to the extent set forth below.
--- NOTE | 2016-06-02 11:09 | Physician Discharge Referral ---
<JacklynBarrington Mitesh - Last Filed: 06/02/16 11:14> Home Health/Hosp Referral Info Transfer to: Home Health Provider in Charge Post Discharge: PCP - Diagnosis (1) Urinary (tract) obstruction Status: Acute (2) Altered mental status, unspecified Status: Acute (3) UTI (urinary tract infection) Status: Acute (4) Dehydration Status: Acute (5) FTT (failure to thrive) in adult Status: Acute (6) Weakness generalized Status: Chronic (7) Myelofibrosis Status: Acute (8) DVT prophylaxis Status: Acute (9) Muscular deconditioning Status: Acute (10) Cachexia Status: Acute (11) Underweight Status: Acute (12) Anemia Status: Acute (13) Thrombocytopenia Status: Acute - Respiratory Orders Smoking Cessation: Smoking cessation has been advised. For more information, call the [employer] Tobacco Quit Line at 2-617-DFBD-NOW. - Services Needed Following services are medically necessary services: Nursing, Home Health Aide, Physical Therapy, Occupational Therapy Other Treatments: Please follow up with your PCP in 7-10 days. Keep bruce catheter in place until voiding trial with your Urologist ( Dr. jorge) Please follow up with Urology within 7 days. Please take medications only as prescribed Please follow up with your Oncologist. Please draw BMP and send to lab on 06/05/16. Please have results forwarded to PCP Dr. Mcdonald. - Transfer Medications Prescriptions: Amoxicillin [Amoxil] 500 mg PO BID #10 capsule Dronabinol [Marinol] 5 mg PO BIDLS #60 capsule Phenazopyridine [Pyridium] 100 mg PO TID PRN #30 tablet PRN Reason: bladder spasm/bruce discomfort Tamsulosin [Flomax] 0.4 mg PO DAILY #30 capsule Home Medications: Lidocaine 1 each TD DAILY 05/29/16 [History] Meclizine [Antivert] 12.5 mg PO TID PRN 05/29/16 [History] Tramadol HCl 50 - 100 mg PO Q4H PRN 05/29/16 [History] Ondansetron HCl [Zofran] 4 mg PO Q8H 30 Days 05/30/16 [Rx] Amoxicillin [Amoxil] 500 mg PO BID #10 capsule 06/02/16 [Rx] Dronabinol [Marinol] 5 mg PO BIDLS #60 capsule 06/02/16 [Rx] Lidocaine Patch [Lidoderm 5% patch] 2 each TP DAILY adh..patch 06/02/16 [Rx] Phenazopyridine [Pyridium] 100 mg PO TID PRN #30 tablet 06/02/16 [Rx] Tamsulosin [Flomax] 0.4 mg PO DAILY #30 capsule 06/02/16 [Rx] Allergies/Adverse Reactions: Allergies shellfish derived Adverse Reaction (Verified 05/29/16 14:46) Hallucinating Certification: Further, I certify that my clinical findings support that this patient is homebound (i.e. absences from home require considerable and taxing effort and are for medical reasons or yarsanism services or infrequently or short duration when for other reasons) because: Attestation: My signature below is to certify that this patient is under my care and that I, or nurse practitioner, or a physician's ophthalmic surgical assistant working with me, has a face-to -face encounter with this patient. <Mingo Hooper - Last Filed: 06/02/16 13:03> - Diagnosis (1) Altered mental status, unspecified Status: Acute (2) Pancytopenia Status: Acute (3) Dehydration Status: Acute (4) Myelofibrosis Status: Acute (5) UTI (urinary tract infection) Status: Acute (6) Weakness generalized Status: Chronic - Respiratory Orders Smoking Cessation: Smoking cessation has been advised. For more information, call the [place] Tobacco Quit Line at 2-112-NTFG-NOW. - Activity Activity: List: complete Amoxicillin, keep Bruce in until urology appointment Certification: Further, I certify that my clinical findings support that this patient is homebound (i.e. absences from home require considerable and taxing effort and are for medical reasons or yarsanism services or infrequently or short duration when for other reasons) because: Homebound Reason: Patient requires assistance of a person or device to safely leave home Attestation: My signature below is to certify that this patient is under my care and that I, or nurse practitioner, or a physician's ophthalmic surgical assistant working with me, has a face-to -face encounter with this patient. I examined this patient and my medical decision-making was reviewed with the FORENSIC EXAMINER/PA/Advanced Practice Nurse/Resident Physician. I agree with the documented findings, disposition and treatment plan as described except to the extent set forth below.
[2016-06-02 11:28] VITALS: BP 113/56
[2016-06-02] MEDS ORDERED: Aminoglycoside Consult 1 EACH MC ONE (15:37)
--- NOTE | 2016-06-09 14:24 | Event Note ---
Date of Encounter: 06/09/16 Time of Encounter: 14:23 Hospice medical technicians certification of terminal illness: Hospice benefit. Start: 06/06/2016 Hospice benefit. In: +90 days Palliative performance scale: Approximately 40% History: The patient has a history of myelofibrosis. After consultation with his oncologist nothing further to be offered, and therefore the patient has noted to forego any further aggressive care. The patient also has comorbidities of urinary tract infections and urinary obstruction. The patient also has protein calorie malnutrition, as well as generalized weakness. Since the patient will not be taking any further aggressive therapy I believe that These findings support a life expectancy of 6 months or less. I attest that I have compose the above narrative based on my review of the patient's medical records, and or on my examination of the patient. Jose Hernandez M.D. Associate certified medical transcriptionist. [facility]
== END 2016-06-02 15:38 | disposition home health service (06) | DRG 689 ==
LOC: EMEROO 14:38 → 2ANU 14:38 → SUATTDRO 18:25 → 2ANU 18:49
PROVIDERS: ADMIT Internal Medicine; ATTEND Internal Medicine